=== PATIENT | male | born 1985 | race Caucasian/White ===

== ENCOUNTER 2018-07-05 20:59 | Emergency (ER) | payer SELFPAY ==
[~2018-07-05] VITALS: Ht 180.3 cm; Wt 90.7 kg
[2018-07-05] MEDS ORDERED: LORAZEPAM 2MG/ML CPJ IV STA (23:16)
[2018-07-05] MEDS ORDERED: CEFTRIAXONE 1 G PREMIX 50 ML IV ONE (23:30)
[2018-07-05] MEDS ORDERED: CEFAZOLIN 1000MG PREMIX 50 ML IV ONE (23:30)
[2018-07-05 23:42] LABS: BASOPHILS % 0.2 % (0.0-2.0); EOSINOPHILS % 0.7 % (0.0-5.0); HEMATOCRIT. 38.2 % (42.0-52.0); HEMOGLOBIN. 13.1 g/dL (14.0-18.0); LYMPHOCYTES % 19.2 % (20.0-50.0); MEAN CORPUSCULAR HEMOGLOBIN 30.7 pg (28.0-32.0); MEAN CORPUSCULAR VOLUME 89.4 fL (80.0-94.0); MEAN PLATELET VOLUME 7.6 fl (7.4-10.4); MONOCYTES % 11.3 % (2.0-8.0); NEUTROPHILS % 68.6 % (40.0-76.0); PLATELET 210 x1000/uL (130-400); RED BLOOD CELL COUNT 4.27 mill/uL (4.7-6.1); RED CELL DISTRIBUTION WIDTH 13.7 % (11.6-14.6)
[2018-07-05 23:46] LABS: CHLORIDE 101 mEq/L (98-107)
[2018-07-05 23:50] LABS: ETHANOL BLOOD < 10 mg/dL
[2018-07-06 15:30] VITALS: BP 122/72
== END 2018-07-06 16:00 | disposition home or self-care (01) ==
LOC: ER 20:59
DX: F22 Delusional disorders (principal); R44.3 Hallucinations, unspecified; M79.652 Pain in left thigh; M79.651 Pain in right thigh
CPT/HCPCS: 36415; 73590; 73620; 80053; 80307; 80320; 80329; 85025; 96365; 96366; 96368; 96375; 99284; J0690; J0696; J2060; G0480